=== PATIENT | female | born 1990 | race Caucasian/White ===

== ENCOUNTER 2016-10-17 12:52 | Emergency (ER) | payer OTHER | END 2016-10-17 17:49 | disposition left against medical advice (07) | LOC: FER 12:52 | DX: Z53.21 Procedure and treatment not carried out due to patient leaving prior to being seen by health care provider (principal); H57.12 Ocular pain, left eye ==

== ENCOUNTER 2020-06-27 14:53 | Emergency (ER) | payer OTHER ==
[2020-06-27] MEDS ORDERED: ETODOLAC500 MG PO (16:12)
== END 2020-06-27 16:49 | disposition home or self-care (01) ==
LOC: FER 14:53
DX: S93.491A Sprain of other ligament of right ankle, initial encounter (principal); W19.XXXA Unspecified fall, initial encounter; Y92.009 Unspecified place in unspecified non-institutional (private) residence as the place of occurrence of the external cause
CPT/HCPCS: 73610